=== PATIENT | female | born 1990 | race American Indian/Alaskan Native ===

== ENCOUNTER 2021-06-06 13:48 | Emergency (ER) | payer SELFPAY ==
--- NOTE | 2021-06-06 15:59 | Emergency Department Report ---
<RENEE HERNANDEZ - Last Filed: 06/06/21 17:51> ED Abdominal Pain HPI - General Chief Complaint: Abdominal Pain Stated Complaint: ABD PAIN Time Seen by Provider: 06/06/21 15:58 Source: patient Mode of arrival: Ambulatory Limitations: No Limitations - History of Present Illness Initial Comments: 31-year-old female presents to the ER today with complaints of pain in her right lower quadrant radiating to her right lower back. Onset was a couple days ago. Patient states that the pain has been constant. She states that she thought it was related to a UTI because the pain started after she started having sexual intercourse. She states that she was having dysuria, urine frequency and urgency and she took Azo. She states that the UTI symptoms resolved after the Azo but she still continues to have pain. She states her last menstrual cycle was April 22, 2021. She does not think she is though she did not take a home test and she is not on control. She denies any abnormal vaginal bleeding or discharge. She denies any nausea vomiting or bowel changes. MD Complaint: abdominal pain -: days(s) - Related Data Previous Rx's Medication Instructions Recorded Last Taken Type Amoxicillin [Amoxicillin TAB] 875 mg PO BID #20 tablet 02/22/15 Unknown Rx predniSONE [Deltasone] 40 mg PO QDAY #10 tab 02/22/15 Unknown Rx Naproxen [Naprosyn] 500 mg PO BID 15 Days #30 tablet 06/06/21 Unknown Rx Nitrofurantoin Fergus/M-Cryst 100 mg PO Q12HR 10 Days #20 capsule 06/06/21 Unknown Rx [Macrobid CAP] traMADoL [Ultram] 50 mg PO Q4HR PRN 3 Days #12 tablet 06/06/21 Unknown Rx Allergies Allergy/AdvReac Type Severity Reaction Status Date / Time No Known Allergies Allergy Unverified 02/22/15 11:26 ED Review of Systems Comment: All other systems reviewed and negative Respiratory: denies: cough, shortness of breath, wheezing Cardiovascular: denies: chest pain, palpitations Gastrointestinal: abdominal pain. denies: nausea, vomiting, diarrhea, constipation, hematemesis, melena, hematochezia Genitourinary: urgency, dysuria, frequency. denies: hematuria, discharge, abnormal menses, dyspareunia Musculoskeletal: back pain. denies: joint swelling, arthralgia, myalgia Skin: denies: rash, lesions, change in color, change in hair/nails, pruritus ED Past Medical Hx - Past Medical History Hx Asthma: Yes - Social History Smoking Status: Never Smoker Substance Use Type: Alcohol, Marijuana - Medications Home Medications: Home Medications Medication Instructions Recorded Confirmed Last Taken Type Amoxicillin [Amoxicillin TAB] 875 mg PO BID #20 tablet 02/22/15 Unknown Rx predniSONE [Deltasone] 40 mg PO QDAY #10 tab 02/22/15 Unknown Rx Naproxen [Naprosyn] 500 mg PO BID 15 Days #30 tablet 06/06/21 Unknown Rx Nitrofurantoin Fergus/M-Cryst 100 mg PO Q12HR 10 Days #20 capsule 06/06/21 Unknown Rx [Macrobid CAP] traMADoL [Ultram] 50 mg PO Q4HR PRN 3 Days #12 tablet 06/06/21 Unknown Rx ED Physical Exam - General Limitations: No Limitations General appearance: alert, in no apparent distress - Head Head exam: Present: atraumatic, normocephalic, normal inspection - Eye Eye exam: Present: normal appearance, PERRL, EOMI Pupils: Present: normal accommodation - ENT ENT exam: Present: mucous membranes moist - Neck Neck exam: Present: normal inspection, full ROM. Absent: meningismus - Respiratory Respiratory exam: Present: normal lung sounds bilaterally, wheezes, rales, rhonchi. Absent: respiratory distress - Cardiovascular Cardiovascular Exam: Present: regular rate, normal rhythm, normal heart sounds - GI/Abdominal GI/Abdominal exam: Present: soft. Absent: distended, tenderness, guarding, rebound - Back Exam Back exam: Present: CVA tenderness (R) - Neurological Exam Neurological exam: Present: alert, oriented X3, CN II-XII intact, normal gait - Psychiatric Psychiatric exam: Present: normal affect, normal mood - Skin Skin exam: Present: intact ED Medical Decision Making - Lab Data Result diagrams: 06/06/21 16:30 06/06/21 16:30 - Medical Decision Making The patient's care has been transferred to and accepted by[Ludmila Murcia NP]. We discussed: The patient's chief complaints; labs that have been completed and those that are still pending; ; any treatment provided and the patient's response to treatment; any significant change in condition; ; the treatment plan prior to the transfer of care. The accepting provider will follow up on all pending labs and imaging and make any necessary changes to the current impression and/or treatment plan. The accepting physician/midlevel is now responsible for the patient's care and final disposition. ED Disposition Clinical Impression: Acute urinary tract infection, Bilateral ovarian cysts, Renal mass Disposition: 01 HOME / SELF CARE / HOMELESS Condition: Stable Instructions: Antibiotic Medicine, Adult, [id number]-Cach, Urinary Tract Infecti on, Adult, Ovarian Cyst, [id number], Abdominal Pain (ED) Additional Instructions: Follow with nephrology for further evaluation of renal mass on CT report Return to ED for any worsening symptom Take antibiotic as needed Drink plenty of fluids Prescriptions: Nitrofurantoin Fergus/M-Cryst [Macrobid CAP] 100 mg PO Q12HR 10 Days #20 capsule Naproxen [Naprosyn] 500 mg PO BID 15 Days #30 tablet traMADoL [Ultram] 50 mg PO Q4HR PRN 3 Days #12 tablet PRN Reason: Pain Referrals: PRIMARY CAREMD [Primary Care Provider] - 3-5 Days SON HARGROVE MD [Staff Physician] - 3-5 Days [facility] [Provider Group] - 3-5 Days CASEY MEDLEY MD [Staff Physician] - 3-5 Days Forms: Work/School Release Form(ED) <JEN MURCIA - Last Filed: 06/06/21 21:23> ED Medical Decision Making - Lab Data Result diagrams: 06/06/21 16:30 06/06/21 16:30 ED Disposition Is pt being admited?: No Does the pt Need Aspirin: No Time of Disposition: 21:17 <NATASHA DOBSON - Last Filed: 06/07/21 11:30> ED Review of Systems ROS: Stated complaint: ABD PAIN Other details as noted in HPI ED Course Vital Signs 06/06/21 06/06/21 15:24 21:37 Temperature 98.6 F 99.4 F Pulse Rate 97 H 76 Respiratory 16 20 Rate Blood Pressure 140/83 Blood Pressure 122/76 [Left] O2 Sat by Pulse 99 99 Oximetry ED Medical Decision Making - Lab Data Result diagrams: 06/06/21 16:30 06/06/21 16:30 Critical care attestation.: If time is entered above; I have spent that time in minutes in the direct care of this critically ill patient, excluding procedure time. ED Disposition Is pt being admited?: No Does the pt Need Aspirin: No
[2021-06-06 16:54] LABS: Hematocrit 38.7 % (30.3-42.9); Hemoglobin 13.2 gm/dl (10.1-14.3); Mean Corpuscular HGB Conc 34 % (30-34); Mean Corpuscular Volume 91 fl (79-97); Platelet Count 167 K/mm3 (140-440); Red Blood Count 4.26 M/mm3 (3.65-5.03); Red Cell Distribution Width 14.1 % (13.2-15.2)
[2021-06-06 17:01] LABS: Alanine Aminotransferase 8 units/L (7-56); Albumin 3.8 g/dL (3.9-5); BUN/Creatinine Ratio 7; Blood Urea Nitrogen 5 mg/dL (7-17); Calcium 9.5 mg/dL (8.4-10.2); Hemolysis Index 5
[2021-06-06] MEDS ORDERED: ACETAMINOPHEN 325 MG TAB PO ONE (17:22)
[2021-06-06] MEDS ORDERED: ACETAMINOPHEN 500 MG TAB PO ONE (17:33)
[2021-06-06 17:53] LABS: Bilirubin,Urine NEG (Negative); Blood,Urine MOD (Negative); Color,Urine Yellow (Yellow); Mucus,Urine FEW /HPF; Urobilinogen,Urine < 2.0 mg/dL (<2.0)
[2021-06-06 17:54] LABS: HCG Qualitative,Urine Negative (Negative)
[2021-06-06] MEDS ORDERED: KETOROLAC 30 MG/1 ML INJ IV ONE (17:58)
[2021-06-06] MEDS ORDERED: MORPHINE 4 MG/1 ML INJ IV ONE (17:58)
[2021-06-06] MEDS ORDERED: ONDANSETRON 4 MG/2 ML INJ IV ONE (17:58)
[2021-06-06 18:52] LABS: Band Neutrophils # (Manual) 0.1 K/mm3; Basophils % (Manual) 0 % (0.0-1.8); Eosinophils % (Manual) 0 % (0.0-4.3); Monocytes % (Manual) 0 % (0.0-7.3); Total Cells Counted 100
[2021-06-06 18:53] LABS: Platelet Estimate Consistent w Auto; RBC Morphology Normal; Toxic Granulation 2+; Toxic Vacuolation 1+
--- NOTE | 2021-06-06 19:15 | Cat Scan Report ---
CT ABDOMEN AND PELVIS WITH CONTRAST HISTORY: right lower quad/right low back pain 100 ML OMNI 300 . COMPARISON: None. TECHNIQUE: CT images of the abdomen and pelvis were obtained following administration of intravenous contrast. All CT scans at this location are performed using CT dose reduction for ALARA by means of automated exposure control. CONTRAST: 100 ml of intravenous contrast administered. FINDINGS: Lungs/bones: Lung bases are clear. There is no acute osseous abnormality. Abdomen/pelvis: Bilateral likely functional ovarian cysts are present measuring 1.8 cm on the left o n image 134 of series 2 and L2 1.1 cm on the right on image 120. Trace pelvic free fluid is most like ly physiologic in a woman of this age. The terminal ileum is normal. The appendix is retrocecal and a ppears normal. The liver, gallbladder, spleen, pancreas, adrenals, left kidney, and proximal GI tract appear unremar kable. The right kidney is abnormal. There is a mass in the mid to upper pole region with attenuation of 54 Hounsfield units measuring 2.6 x 2.0 cm on image 63 of series 2. Urinary bladder is unremarkable. No acute colonic abnormality identified. IMPRESSION: 1. Right renal mass in the mid to upper pole region. Recommend follow-up renal ultrasound to assess i nternal vascularity. 2. Bilateral likely functional ovarian cysts with small volume pelvic free fluid which is most likely physiologic in a woman of this age. Signer Name: Justyn Chairez MD Signed: 06/06/2021 7:11 PM Workstation Name: [id number]
[2021-06-06 21:40] VITALS: BP 122/76
--- NOTE | 2021-06-07 06:54 | Ultrasound Report ---
ULTRASOUND RENAL INDICATION: Follow-up of right renal mass. COMPARISON: CT abdomen and pelvis with contrast performed on the same day. FINDINGS: RIGHT KIDNEY: Size: 11.4 x 5.1 cm. Echogenicity: Normal. Parenchymal thickness: Normal. Hydronephrosis: None. Cyst or mass: A hyperechoic upper pole mass measures 2.8 x 2.2 cm and correlates with the mass seen o n the previous CT. No other solid or cystic lesions. Stones: None. LEFT KIDNEY: Size: 10.2 x 5.2 cm. Echogenicity: Normal. Parenchymal thickness: Normal. Hydronephrosis: None. Cyst or mass: None. Stones: None. Urinary Bladder: No significant abnormality. Free Fluid: None. Additional Findings: None. IMPRESSION 1. Right renal AML as described above, correlating with the findings on the CT performed on the same day. 2. No other significant abnormality. Signer Name: Ky Carpenter MD Signed: 06/07/2021 6:50 AM Workstation Name: [id number]
== END 2021-06-06 21:40 | disposition home or self-care (01) ==
LOC: ED 13:48
DX: N39.0 Urinary tract infection, site not specified (principal); N83.202 Unspecified ovarian cyst, left side; N83.201 Unspecified ovarian cyst, right side; N28.89 Other specified disorders of kidney and ureter; J45.909 Unspecified asthma, uncomplicated; Z79.899 Other long term (current) drug therapy
CPT/HCPCS: 36415; 74177; 76770; 80053; 81001; 81025; 83690; 85007; 85025; 87076; 87086; 87186; 96374; 96375; 99284; J1885; J2270; J2405; Q9967